=== PATIENT | female | born 1955 | race Caucasian/White ===

== ENCOUNTER 2021-03-03 11:09 | Inpatient (IN) | payer OTHER ==
[~2021-03-03] VITALS: Ht 170.2 cm; Wt 90.3 kg
[2021-03-03] MEDS ORDERED: ATORVASTATIN CA80 MG PO (22:08)
[2021-03-03] MEDS ORDERED: CLOPIDOGREL75 MG PO (22:09)
[2021-03-03] MEDS ORDERED: LEVOTHYROXINE50 MCG PO (22:09)
[2021-03-03] MEDS ORDERED: LEVEMIR FL100 UNIT/1 SQ (22:10)
[2021-03-03] MEDS ORDERED: JARDIANCE10 MG PO (22:11)
[2021-03-03] MEDS ORDERED: VENTOLIN HFA 66.7 GM INH (22:11)
[2021-03-03] MEDS ORDERED: PROTONIX 40 MG40 M1 PO (22:12)
[2021-03-03] MEDS ORDERED: MONTELUKAST SOD10 MG PO (22:12)
[2021-03-03] MEDS ORDERED: NOVOLOG 10100 UNITS/ SQ (22:14)
[2021-03-03] MEDS ORDERED: AMARYL 2MG TABLE2 MG PO (22:14)
[2021-03-03] MEDS ORDERED: ACARBOSE25 MG PO (22:14)
[2021-03-03] MEDS ORDERED: LOPRESSOR 25 MG25 MG PO (22:15)
[2021-03-03 23:07] LABS: HEMOGLOBIN 10.4 gm/dl (12.3-15.3); RED BLOOD COUNT 4.28 M/UL (4.00-5.10); WHITE BLOOD COUNT 29.1 K/UL (4.5-11.0)
[2021-03-03] MEDS ORDERED: HYGROTON TAB 2525 MG PO (23:39)
[2021-03-03] MEDS ORDERED: PHENERGAN 25 MG25 M1 PO (23:40)
[2021-03-03] MEDS ORDERED: XYZAL5 MG PO (23:41)
[2021-03-03] MEDS ORDERED: PEPCID40 MG PO (23:41)
[2021-03-03] MEDS ORDERED: COZAAR25 MG PO (23:44)
[2021-03-03] MEDS ORDERED: GABAPENTIN600 MG PO (23:45)
[2021-03-03] MEDS ORDERED: KLONOPIN0.5 MG PO (23:45)
[2021-03-03] MEDS ORDERED: HUMALOG100 UNIT/1 SC (23:47)
--- NOTE | 2021-03-04 00:12 | NUR ---
03/03/21 2304 CALLED AND SPOKE TO JEAN-PAUL STUART (PATIENTS DAUGHTER) TO COMPLETE THE ADMISSION PROSSESS. DAUGHTER INFORMED THAT THE PATIENT IS A DNR/DNI CODE STATUS. DR GRANT WAS NOTIFIED OF THIS AND THE ORDER WAS CHANGED.
[2021-03-04 04:55] LABS: HEMOGLOBIN 9.4 gm/dl (12.3-15.3); WHITE BLOOD COUNT 24.7 K/UL (4.5-11.0)
[2021-03-04 04:56] LABS: RED BLOOD COUNT 3.83 M/UL (4.00-5.10)
[2021-03-05 05:27] LABS: HEMOGLOBIN 8.7 gm/dl (12.3-15.3); RED BLOOD COUNT 3.6 M/UL (4.00-5.10); WHITE BLOOD COUNT 17.8 K/UL (4.5-11.0)
[2021-03-05] MEDS ORDERED: NOVOLOG 10100 UNITS/ SC (21:38)
[2021-03-06 05:07] LABS: HEMOGLOBIN 8.8 gm/dl (12.3-15.3); RED BLOOD COUNT 3.67 M/UL (4.00-5.10)
[2021-03-06 05:08] LABS: WHITE BLOOD COUNT 12.4 K/UL (4.5-11.0)
[2021-03-07 02:19] LABS: HEMOGLOBIN 8.8 gm/dl (12.3-15.3); RED BLOOD COUNT 3.67 M/UL (4.00-5.10)
[2021-03-07 02:21] LABS: WHITE BLOOD COUNT 15.7 K/UL (4.5-11.0)
[2021-03-07 04:11] LABS: CREATININE, URINE 21.7 mg/dL (Not Estab.)
[2021-03-07 07:11] LABS: COMPLEMENT C3, SERUM 144 mg/dL (82-167); COMPLEMENT C4, SERUM 21 mg/dL (12-38)
[2021-03-07 11:14] LABS: ORGANISM ID Not indicated. (.); SPECIMEN SOURCE Urine (.); STREPTOCOCCUS PNEUMONIAE AG Negative (Negative)
[2021-03-07 12:15] LABS: ANTI-DSDNA ANTIBODIES <1 IU/mL (0-9)
[2021-03-07 15:09] LABS: A/G RATIO 0.9 (0.7-1.7); ALBUMIN 2.6 g/dL (2.9-4.4); ALPHA-1-GLOBULIN 0.3 g/dL (0.0-0.4); ALPHA-2-GLOBULIN 1.1 g/dL (0.4-1.0); BETA GLOBULIN 0.9 g/dL (0.7-1.3); GAMMA GLOBULIN 0.8 g/dL (0.4-1.8); GLOBULIN, TOTAL 3.1 g/dL (2.2-3.9); IMMUNOFIXATION RESULT, SERUM Comment: (.); IMMUNOGLOBULIN A, QN, SERUM 171 mg/dL (87-352); IMMUNOGLOBULIN G, QN, SERUM 620 mg/dL (586-1602); IMMUNOGLOBULIN M, QN, SERUM 224 mg/dL (26-217); M-SPIKE Not Observed g/dL (Not Observed); PROTEIN, TOTAL, SERUM 5.7 g/dL (6.0-8.5)
[2021-03-07 17:11] LABS: CHLAMYDIA TRACHOMATIS, NAA Negative (Negative); HISTOPLASMA GAL'MANNAN AG UR <0.5 (<0.5 ng/mL); NEISSERIA GONORRHOEAE, NAA Negative (Negative)
[2021-03-08 09:46] LABS: WHITE BLOOD COUNT 10.7 K/UL (4.5-11.0)
[2021-03-08 09:47] LABS: HEMOGLOBIN 9.6 gm/dl (12.3-15.3); RED BLOOD COUNT 3.97 M/UL (4.00-5.10)
[2021-03-08 17:09] LABS: ANTIMYELOPEROXIDASE (MPO) ABS <9.0 U/mL (0.0-9.0); ANTIPROTEINASE 3 (PR-3) ABS <3.5 U/mL (0.0-3.5); ATYPICAL PANCA <1:20 titer (Neg:<1:20); CYTOPLASMIC (C-ANCA) <1:20 titer (Neg:<1:20); PERINUCLEAR (P-ANCA) <1:20 titer (Neg:<1:20)
[2021-03-09 02:30] LABS: HEMOGLOBIN 9.3 gm/dl (12.3-15.3); RED BLOOD COUNT 3.8 M/UL (4.00-5.10); WHITE BLOOD COUNT 11.4 K/UL (4.5-11.0)
[2021-03-10 03:00] LABS: HEMOGLOBIN 9.5 gm/dl (12.3-15.3); RED BLOOD COUNT 3.95 M/UL (4.00-5.10); WHITE BLOOD COUNT 13.5 K/UL (4.5-11.0)
[2021-03-10] MEDS ORDERED: FERROUS SULFAT325 M2 PO (09:06)
[2021-03-10] MEDS ORDERED: AERONEB GO NEB1 EACH MC (09:06)
[2021-03-10] MEDS ORDERED: ZYVOX600 MG PO (09:06)
[2021-03-10] MEDS ORDERED: LASIX40 MG PO (09:06)
[2021-03-10] MEDS ORDERED: BUSPIRONE HCL5 MG PO (09:06)
[2021-03-10] MEDS ORDERED: ALDACTONE25 MG PO (09:06)
[2021-03-10] MEDS ORDERED: IPRAT-ALBUT 0.5-3 ML INH (09:06)
== END 2021-03-10 14:40 | disposition home health service (06) | DRG 871 ==
LOC: PROG CARE 21:47 → CCU 21:47 → PROG CARE 03-06 19:56
PROVIDERS: Internal Medicine; Internal Medicine Nephrology; Internal Medicine Pulmonary Disease; ADMIT Internal Medicine
DX: A41.9 Sepsis, unspecified organism (principal); J15.212 Pneumonia due to Methicillin resistant Staphylococcus aureus; G93.41 Metabolic encephalopathy; J96.21 Acute and chronic respiratory failure with hypoxia; I21.A1 Myocardial infarction type 2; I50.23 Acute on chronic systolic (congestive) heart failure; I13.0 Hypertensive heart and chronic kidney disease with heart failure and stage 1 through stage 4 chronic kidney disease, or unspecified chronic kidney disease; E87.2 Acidosis; E87.1 Hypo-osmolality and hyponatremia; N17.9 Acute kidney failure, unspecified; J44.1 Chronic obstructive pulmonary disease with (acute) exacerbation; J44.0 Chronic obstructive pulmonary disease with (acute) lower respiratory infection; I69.352 Hemiplegia and hemiparesis following cerebral infarction affecting left dominant side; R65.20 Severe sepsis without septic shock; E11.65 Type 2 diabetes mellitus with hyperglycemia; I16.0 Hypertensive urgency; E11.621 Type 2 diabetes mellitus with foot ulcer; F41.9 Anxiety disorder, unspecified; I25.10 Atherosclerotic heart disease of native coronary artery without angina pectoris; N18.9 Chronic kidney disease, unspecified; E11.22 Type 2 diabetes mellitus with diabetic chronic kidney disease; G89.29 Other chronic pain; Z20.822 Contact with and (suspected) exposure to COVID-19; I95.9 Hypotension, unspecified; N18.30 Chronic kidney disease, stage 3 unspecified; E78.5 Hyperlipidemia, unspecified; E87.5 Hyperkalemia; I48.0 Paroxysmal atrial fibrillation; E03.9 Hypothyroidism, unspecified; K21.9 Gastro-esophageal reflux disease without esophagitis; D50.0 Iron deficiency anemia secondary to blood loss (chronic); E66.9 Obesity, unspecified; L89.622 Pressure ulcer of left heel, stage 2; Z90.710 Acquired absence of both cervix and uterus; Z98.51 Tubal ligation status; Z86.73 Personal history of transient ischemic attack (TIA), and cerebral infarction without residual deficits; Z88.6 Allergy status to analgesic agent; Z88.2 Allergy status to sulfonamides; Z79.01 Long term (current) use of anticoagulants; Z68.31 Body mass index [BMI] 31.0-31.9, adult; Z80.3 Family history of malignant neoplasm of breast; Z80.8 Family history of malignant neoplasm of other organs or systems; Z72.0 Tobacco use; Z79.4 Long term (current) use of insulin
CPT/HCPCS: ECHO; 36415; 36600; 70450; 71045; 71046; 71250; 80048; 80053; 80202; 81001; 82009; 82043; 82550; 82553; 82570; 82784; 82803; 82962; 83498; 83520; 83605; 83735; 83874; 83880; 83883; 84155; 84156; 84165; 84439; 84443; 84484; 85025; 85027; 85379; 86038; 86140; 86160; 86225; 86256; 86334; 87040; 87070; 87077; 87186; 87205; 87278; 87385; 87899; 93005; 93306; 93970; 94640; 94660; 94664; 94760; 97161; 97166; A6212; J0360; J1650; J1756; J1940; J2060; J2543; J2920; J3370; J7030; J7070; P9047